=== PATIENT | female | born 1945 | race Caucasian/White ===

== ENCOUNTER 2019-12-21 16:49 | Outpatient (CLI) | payer MEDICARE, OTHER, SELFPAY ==
--- NOTE | ~2019-12-21 | MM_ITS ---
EXAMINATION: MM screening geri BI w brenda HISTORY: Screening TECHNIQUE: Craniocaudal and mediolateral oblique 3-D tomosynthesis images were obtained and synthetic 2-D images were generated. CAD analysis was submitted and interpreted. COMPARISON: Comparison to multiple prior studies sequentially, with oldest reviewed study dated 05/01. BREAST PARENCHYMAL COMPOSITION: There are scattered areas of fibroglandular density. FINDINGS: There is no evidence of suspicious mass, calcification, or architectural distortion to sugg est malignancy in either breast. There has been no suspicious interval change. IMPRESSION: 1. No mammographic evidence of malignancy. 2. Recommend routine screening mammography in one year. BI-RADS Category 1: Negative Reviewed, dictated and finalized at location A.
== END 2019-12-21 16:50 | disposition home or self-care (01) ==
LOC: ANHIMG 16:58
PROVIDERS: PCP Family Medicine; Visit Provider Physician Assistant
DX: Z12.31 Encounter for screening mammogram for malignant neoplasm of breast (principal); Z78.0 Asymptomatic menopausal state
CPT/HCPCS: 77063; 77067

== ENCOUNTER 2020-01-30 09:02 | Outpatient (CLI) | payer MEDICARE, OTHER, SELFPAY ==
--- NOTE | ~2020-01-30 | DEXA_ITS ---
Bone Density Report Name: Kristine Mcnair Age: 74 Sex: Female Ethnicity: White Date of : 1945 Indication: osteopenia; parental hip fracture; height loss; prior fracture; Referring Provider: Sarah Corona Study: Bone densitometry was performed. Exam Date: January 30, 2020 Accession number: [id number] Bone Density: Region BMD T-score Z-score Classification AP Spine (L1-L4) 0.846 -1.8 0.4 Osteopenia Femoral Neck (Left) 0.745 -0.9 1.0 Normal Total Hip (Left) 0.850 -0.8 0.9 Normal Total Hip Bilateral Avg 0.850 -0.8 0.9 Normal Femoral Neck (Right) 0.759 -0.8 1.1 Normal Total Hip (Right) 0.849 -0.8 0.9 Normal World Health Organization criteria for BMD impression classify patients as: Normal (T-score at or above -1.0), Osteopenia (T-score between -1.0 and -2.5), or Osteoporosis (T-score at or below -2.5). 10-year Fracture Risk(1): Major Osteoporotic Fracture 21% Hip Fracture 4.9% Reported Risk Factors: [place] (), Neck BMD=0.745, BMI=25.8, previous fracture, parental fracture (1) FRAX(R) Version 3.08. Fracture probability calculated for an untreated patient. Fracture probability may be lower if the patient has received treatment. Previous Exams: Region Exam Age BMD T-score BMD Change BMD Change Date g/cm2 vs Baseline vs Previous AP Spine(L1-L4) 01/30/2020 74 0.846 -1.8 -0.147(-14.8%) -0.027(-3.1%)* 09/10/2017 72 0.873 -1.6 -0.120(-12.1%) -0.001(-0.1%) 05/01/2015 69 0.874 -1.6 -0.119(-12.0%) -0.119(-12.0%) 09/10/2009 64 0.993 -0.5 Total Hip(Left) 01/30/2020 74 0.850 -0.8 -0.087(-9.3%)# -0.018(-2.1%) 09/10/2017 72 0.868 -0.6 -0.069(-7.3%)# -0.002(-0.3%) 05/01/2015 69 0.871 -0.6 -0.066(-7.1%)# -0.066(-7.1%)# 09/10/2009 64 0.937 0.0 Total Hip(Right) 01/30/2020 74 0.849 -0.8 -0.132(-13.4%) -0.023(-2.7%) 09/10/2017 72 0.873 -0.6 -0.108(-11.0%) -0.016(-1.8%) 05/01/2015 69 0.889 -0.4 -0.092(-9.4%)# -0.092(-9.4%)# 09/10/2009 64 0.981 0.3 *Denotes significance at 95% confidence level, LSC for AP Spine = 0.022 g/cm2, LSC for Total Hip = 0.027 g/cm2 Clinical Information Provided by Patient: Has had a low trauma fracture Parent has had a hip fracture Has used the following medications: Calcium Patient maximum height was 67 Menopause Age: 52 No regular weight bearing exercise Drinks caffeinated beverages Onset of menses at age 13 Number of children 2
== END 2020-01-30 09:03 | disposition home or self-care (01) ==
PROVIDERS: PCP Family Medicine; Visit Provider Physician Assistant
DX: M85.88 Other specified disorders of bone density and structure, other site (principal); Z78.0 Asymptomatic menopausal state
CPT/HCPCS: 77080

== ENCOUNTER 2021-02-11 09:13 | Outpatient (CLI) | payer MEDICARE, OTHER, SELFPAY ==
--- NOTE | ~2021-02-11 | MM_ITS ---
EXAMINATION: MM screening geri BI w brenda HISTORY: Screening mammogram TECHNIQUE: Craniocaudal and mediolateral oblique 3-D tomosynthesis images were obtained and synthetic 2-D images were generated. CAD analysis was submitted and interpreted. COMPARISON: 12/21/2019, 09/22/2018, 09/10/2017 bilateral screening mammogram examinations BREAST PARENCHYMAL COMPOSITION: There are scattered areas of fibroglandular density. FINDINGS: Biopsy marker on the left; history of prior benign left breast biopsy. Scattered bilateral benign calcifications. There is no evidence of suspicious mass, calcification, or architectural disto rtion to suggest malignancy in either breast. There has been no suspicious interval change. IMPRESSION: 1. No mammographic evidence of malignancy. 2. Recommend routine screening mammography in one year. BI-RADS Category 2: Benign finding(s). Reviewed, dictated and finalized at location A. PROPELLED MINING MACHINE OPERATOR
== END 2021-02-11 09:14 | disposition home or self-care (01) ==
PROVIDERS: PCP Family Medicine; Visit Provider Physician Assistant Medical
DX: Z12.31 Encounter for screening mammogram for malignant neoplasm of breast (principal)
CPT/HCPCS: 77063; 77067

== ENCOUNTER 2022-04-29 08:44 | Outpatient (CLI) | payer MEDICARE, OTHER, SELFPAY ==
--- NOTE | ~2022-04-29 | MM_ITS ---
EXAMINATION: MM screening geri BI w brenda HISTORY: Screening mammogram TECHNIQUE: Craniocaudal and mediolateral oblique 3-D tomosynthesis images were obtained and synthetic 2-D images were generated. CAD analysis was submitted and interpreted. COMPARISON: 02/11/2021, 12/21/2019, 09/22/2018 bilateral screening mammogram examinations BREAST PARENCHYMAL COMPOSITION: There are scattered areas of fibroglandular density. FINDINGS: Biopsy marker again noted on the left; history of prior benign left breast biopsy. Scattere d bilateral benign calcifications. There is no evidence of suspicious mass, calcification, or archite ctural distortion to suggest malignancy in either breast. There has been no suspicious interval christine e. IMPRESSION: 1. No mammographic evidence of malignancy. 2. Recommend routine screening mammography in one year. BI-RADS Category 2: Benign finding(s). Reviewed, dictated and finalized at location C. OR ENGINEER
--- NOTE | ~2022-04-29 | DEXA_ITS ---
Bone Density Report Name: BK JUNE Age: 76 Sex: Female Ethnicity: White Date of : 1945 Indication: postmenopausal; screening for osteoporosis; height loss; Referring Provider: KWABENA SAMAYOA Study: Bone densitometry was performed. Exam Date: April 29, 2022 Accession number: [id number] Bone Density: Region BMD T-score Z-score Classification AP Spine(L1-L4) 0.878 -1.5 0.8 Osteopenia Femoral Neck (Left) 0.692 -1.4 0.7 Osteopenia Total Hip (Left) 0.810 -1.1 0.7 Osteopenia Femoral Neck (Right) 0.757 -0.8 1.2 Normal Total Hip (Right) 0.869 -0.6 1.2 Normal Total Hip Mean 0.840 -0.9 1.0 Normal World Health Organization criteria for BMD impression classify patients as: Normal (T-score at or above -1.0), Osteopenia (T-score between -1.0 and -2.5), or Osteoporosis (T-score at or below -2.5). 10-year Fracture Risk(1): Major Osteoporotic Fracture 11% Hip Fracture 2.1% Reported Risk Factors: [place] (), Neck BMD=0.692, BMI=25.0 (1) FRAX(R) Version 3.08. Fracture probability calculated for an untreated patient. Fracture probability may be lower if the patient has received treatment. Previous Exams: Region Exam Age BMD T-score BMD Change BMD Change Date g/cm2 vs Baseline vs Previous Total Hip(Left) 04/29/2022 76 0.810 -1.1 -0.060 (-6.9%) -0.040 (-4.7%) 01/30/2020 74 0.850 -0.8 -0.021 (-2.4%) -0.018 (-2.1%) 09/10/2017 72 0.868 -0.6 -0.002 (-0.3%) -0.002 (-0.3%) 05/01/2015 69 0.871 -0.6 Total Hip(Right) 04/29/2022 76 0.869 -0.6 -0.020 (-2.3%) 0.020 (2.3%) 01/30/2020 74 0.849 -0.8 -0.040 (-4.5%) -0.023 (-2.7%) 09/10/2017 72 0.873 -0.6 -0.016 (-1.8%) -0.016 (-1.8%) 05/01/2015 69 0.889 -0.4 *Denotes significance at 95% confidence level, LSC for Total Hip = 0.027 g/cm2 Clinical Information Provided by Patient: Has used the following medications: Vitamin D, Calcium Patient maximum height was 67 Menopause Age: 52 Drinks caffeinated beverages Onset of menses at age 13 Number of children 2 Impression: The patient has low bone mass, based on the Total Spine T-score. The patient has an estimated ten-year risk of hip fracture of 2.1% and an estimated ten-year risk of major fracture of 11%, based on the WHO FRAX algorithm. The BMD for the Total Hip(Left) decreased, changing by -4.7% since the last DXA exam. Discussion: BONE DENSITY IS LOW AT ONE OR MORE SKELETAL SITES. This patient's indianola
== END 2022-04-29 08:45 | disposition home or self-care (01) ==
PROVIDERS: PCP Family Medicine; Visit Provider Physician Assistant
DX: Z12.31 Encounter for screening mammogram for malignant neoplasm of breast (principal); Z78.0 Asymptomatic menopausal state; M85.88 Other specified disorders of bone density and structure, other site; M85.852 Other specified disorders of bone density and structure, left thigh
CPT/HCPCS: 77063; 77067; 77080

== ENCOUNTER 2022-12-25 09:53 | Outpatient (CLI) | payer MEDICARE, OTHER, SELFPAY | END 2022-12-25 09:54 | disposition home or self-care (01) | LOC: ANHAUDIO 09:54 | PROVIDERS: PCP Family Medicine; Visit Provider Otolaryngology | DX: H93.12 Tinnitus, left ear (principal); H90.3 Sensorineural hearing loss, bilateral | CPT/HCPCS: 92557; 92567 ==

== ENCOUNTER → 2023-01-07 11:13 | Outpatient (CLI) | payer MEDICARE, OTHER, SELFPAY ==
--- NOTE | ~2023-01-07 | MR_ITS ---
EXAMINATION: MR IAC wo/w con DATE: 01/07/2023 12:25 INDICATION: Sensorineural hearing loss, bilateral. TECHNIQUE: Magnetic resonance imaging (MRI) of the brain, brainstem, and internal auditory canals was performed without and with 13 mL MultiHance intravenous contrast. 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 There are scattered areas of nonspecific in creased T2-weighted signal intensity in the cerebral white matter. There is no intracranial hemorrhag e, acute infarction, or abnormal intracranial mass lesion. The ventricles are normal in size. The int ernal auditory canals and inner ears and tympanic cavities are normal. The mastoid air cells are norm al. There are likely changes of ocular lens replacement surgeries. The paranasal sinuses are clear. IMPRESSION: 1. 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 2. Mild nonspecific cerebral white matter disease, which likely represents chronic small vessel ische maryuri disease. Reviewed, dictated and finalized at location E. IMPRESSION: 1. 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 2. Mild nonspecific cerebral white matter disease, which likely represents pediatric psychologist jack small vessel ischemic disease.
== END ==
PROVIDERS: PCP Family Medicine; Visit Provider Otolaryngology
DX: H90.3 Sensorineural hearing loss, bilateral (principal); I63.89 Other cerebral infarction; R90.82 White matter disease, unspecified
CPT/HCPCS: 70553; A9577

== ENCOUNTER 2023-06-23 10:13 | Outpatient (CLI) | payer MEDICARE, OTHER, SELFPAY ==
--- NOTE | ~2023-06-23 | MM_ITS ---
EXAMINATION: MM screening geri BI w brenda HISTORY: Screening mammogram TECHNIQUE: Craniocaudal and mediolateral oblique 3-D tomosynthesis images were obtained and synthetic 2-D images were generated. CAD analysis was submitted and interpreted. COMPARISON: April 29, 2022, February 11, 2021 bilateral screening mammogram examinations BREAST PARENCHYMAL COMPOSITION: There are scattered areas of fibroglandular density. FINDINGS: Biopsy markers on the left; history of prior benign left breast biopsy. Scattered bilateral benign calcifications including secretory calcifications and calcified microhemat omas are again noted. There is no evidence of suspicious mass, calcification, or architectural distortion to suggest malign johan in either breast. There has been no suspicious interval change. IMPRESSION: 1. No mammographic evidence of malignancy. 2. Recommend routine screening mammography in one year. BI-RADS Category 2: Benign finding(s). Reviewed, dictated and finalized at location A.
== END 2023-06-23 10:14 | disposition home or self-care (01) ==
PROVIDERS: PCP Family Medicine; Visit Provider Physician Assistant
DX: Z12.31 Encounter for screening mammogram for malignant neoplasm of breast (principal)
CPT/HCPCS: 77063; 77067

== ENCOUNTER 2024-07-18 13:47 | Outpatient (CLI) | payer MEDICARE, OTHER, SELFPAY ==
--- NOTE | ~2024-07-18 | MM_ITS ---
EXAMINATION: MM screening [facility] BI w brenda HISTORY: Screening TECHNIQUE: Craniocaudal and mediolateral oblique 3-D tomosynthesis images were obtained and synthetic 2-D images were generated. CAD analysis was submitted and interpreted. COMPARISON: Comparison to multiple prior studies sequentially, with oldest reviewed study dated 09/10. BREAST PARENCHYMAL COMPOSITION: Not dense: There are scattered areas of fibroglandular density. FINDINGS: There is no evidence of suspicious mass, calcification, or architectural distortion to sugg est malignancy in either breast. There has been no suspicious interval change. IMPRESSION: 1. No mammographic evidence of malignancy. 2. Recommend routine screening mammography in one year. BI-RADS Category 1: Negative Reviewed, dictated and finalized at location A.
--- NOTE | ~2024-07-18 | DEXA_ITS ---
Bone Density Report Name: BK JUNE Age: 79 Sex: Female Ethnicity: White Date of : 1945 Indication: osteopenia; parental hip fracture; height loss; Referring Provider: HUBERT FINCH Study: Bone densitometry was performed. Exam Date: July 18, 2024 Accession number: [id number] Bone Density: Region BMD T-score Z-score Classification AP Spine(L1-L4) 0.885 -1.5 1.0 Osteopenia Femoral Neck (Left) 0.700 -1.3 0.8 Osteopenia Total Hip (Left) 0.837 -0.9 1.0 Normal Femoral Neck (Right) 0.725 -1.1 1.1 Osteopenia Total Hip (Right) 0.876 -0.5 1.4 Normal Total Hip Mean 0.857 -0.7 1.2 Normal World Health Organization criteria for BMD impression classify patients as: Normal (T-score at or above -1.0), Osteopenia (T-score between -1.0 and -2.5), or Osteoporosis (T-score at or below -2.5). 10-year Fracture Risk(1): Major Osteoporotic Fracture 19% Hip Fracture 9.7% Reported Risk Factors: [place] (), Neck BMD=0.700, BMI=25.4, parental fracture (1) FRAX(R) Version 3.08. Fracture probability calculated for an untreated patient. Fracture probability may be lower if the patient has received treatment. Previous Exams: Region Exam Age BMD T-score BMD Change BMD Change Date g/cm2 vs Baseline vs Previous AP Spine (L1-L4) 07/18/2024 79 0.885 -1.5 0.011 (1.3%) 0.008 (0.9%) 04/29/2022 76 0.878 -1.5 0.003 (0.4%) 0.032 (3.7%)* 01/30/2020 74 0.846 -1.8 -0.028 (-3.2%) -0.027 (-3.1%) 09/10/2017 72 0.873 -1.6 -0.001 (-0.1%) -0.001 (-0.1%) 05/01/2015 69 0.874 -1.6 Total Hip(Left) 07/18/2024 79 0.837 -0.9 -0.033 (-3.8%) 0.027 (3.3%) 04/29/2022 76 0.810 -1.1 -0.060 (-6.9%) -0.040 (-4.7%) 01/30/2020 74 0.850 -0.8 -0.021 (-2.4%) -0.018 (-2.1%) 09/10/2017 72 0.868 -0.6 -0.002 (-0.3%) -0.002 (-0.3%) 05/01/2015 69 0.871 -0.6 Total Hip(Right) 07/18/2024 79 0.876 -0.5 -0.013 (-1.4%) 0.007 (0.8%) 04/29/2022 76 0.869 -0.6 -0.020 (-2.3%) 0.020 (2.3%) 01/30/2020 74 0.849 -0.8 -0.040 (-4.5%) -0.023 (-2.7%) 09/10/2017 72 0.873 -0.6 -0.016 (-1.8%) -0.016 (-1.8%) 05/01/2015 69 0.889 -0.4 *Denotes significance at 95% confidence level, LSC for AP Spine = 0.022 g/cm2, LSC for Total Hip = 0.027 g/cm2 Clinical Information Provided by Patient: Parent has had a hip fracture Has used the following medications: Vitamin D, Calcium Patient maximum height was 67 Menopause Age: 52 Drinks caffeinated beverages Onset of menses at age 13 Number of children 2 Impression: The patient has low bone mass, based on the Total Spine T-score. The patient has an estimated ten-year risk of hip fracture of 9.7% and an estimated ten-year risk of major fracture of 19%, based on the WHO FRAX algorithm. The patient has risk factors, including: parental hip fracture. No significant bone loss was observed. Discussion: BONE DENSITY IS LOW AT ONE OR MORE SKELETAL SITES. THE PATIENT'S BMD AND CLINICAL RISK FACTORS CONTRIBUTE TO THIS PATIENT'S INCREASED RISK OF FRACTURE. This patient's lowest T-score is low at one or more skeletal sites. It meets the World Health Organization's (WHO) criteria for ?low bone mass? (T-score between -1.0 and -2.5). The patient's 10-year risk of hip fracture as calculated by FRAX exceeds the threshold where pharmacological therapy is recommended by the National Osteoporosis Foundation (NOF). However, all treatment decisions require clinical judgment and consideration of individual patient factors, including patient preferences, comorbidities, previous drug use, risk factors not captured in the FRAX model (e.g., frailty, falls, vitamin D deficiency, increased bone turnover, interval significant decline in bone density) and possible under or overestimation of fracture risk by FRAX. The patient should follow a healthful lifestyle (good nutrition with adequate calcium and vitamin D, and appropriate weight-bearing exercise). Follow-Up: Consider a repeat BMD and Vertebral Fracture Assessment (VFA) exam in 2 years or sooner if medically necessary, to reassess this patient's status. Reported by: QI on 07/18/2024 2:31:00 PM. Reviewed, dictated and finalized at location AAgustina GUIDO
--- OUTSIDE RECORDS SUMMARY | 2024-07-18 13:53 | XMS_ITS | Clinical Summary ---
Author Organization [facility] Address [address] [place] [id number] Care Team Providers Care Linesperson Name Role Phone Unavailable Primary Care Provider Unavailabl e Social History Tobacco Use Types Packs/Day Years Used Date Smoking Tobacco: Never Assessed Comments Unknown Sex and Gender Information Value Date Recorded Sex Assigned at Not on file Legal Sex Female 7:37 PM CDT Gender Identity Not on file Sexual Orientation Not on file Plan of Treatment Health Maintenance Due Date Last Done Comments Hepatitis C 07/09/1965 DTaP, Tdap and Td Vaccines ( 1 - Tdap) 07/09/1966 Pneumococcal Vaccine: 50+ Ye ars (1 of 1 - PCV) 07/09/1997 Zoster Vaccines (1 of 2) 07/09/1997 Dexa Scan (General) 07/09/2012 RSV Immunization or 60+ Years (1 - 1-dose 75+ series) 07/09/2022 COVID-19 Vaccine ( - 2023-2 5 season) 2023 Meningococcal B Vaccine Aged Out No l onger eligible based on patient's age to complete this topic Meningococcal Vaccine Aged Out No candice saúl eligible based on patient's age to complete this topic RSV Immunizations Under 20 Months Aged Out No longer eligible based on patient's age to complete this topic
--- OUTSIDE RECORDS SUMMARY | 2024-07-18 13:53 | XMS_ITS | Continuity of Care Document ---
Author Organization [facility] Address [address] [place] [address] [place] [address] Phone Care Team Providers Care Dukey Rider Name Role Phone [facility] Unavailable Unavail able Terri Daley Unavailable Unavailable Procedures Procedure Date Vision Svcs Frames Purchases Progressive Lens, Polycarb Anti-reflective Coating [employer] - Medical Progressive Lens, Plastic Vision Svcs Frames Purchases Tint Plastic, Non-Bozena Anti-reflective Coating [employer] - Medical Progressive Lens, Plastic Frames Deluxe Anti-reflective Coating [facility] Medical Advance Directives Directive Yes / No Effective Date File Name No Information Encounters Encounter Description Practice Location Reason(s) For Visit Diagnoses Date Provider Providers Copied on Encounter [facility], [address], [place], [place], [id number], [place] tel:[phone] [facility] No Information 0 [facility] [address] [facility], [address], [place], [place], [id number] , [place]. tel:[phone] Referring Provider: Shin Joel, [address] [place], [address]. tel:[phone] juarez Provider: Terri Daley, [address] [place], [address]. tel:[phone] [facility], [address], [place], [place], [id number], [place] tel:[phone] [facility] No Information 7 [facility] [address] [facility], [address], [place], [place], [address] , [place]. tel:[phone] Consulting Provider: Monet Nelson, [address] [place], [address]. tel:[phone] [facility] [employer], [address], [place], [place], [id number], [place] tel:[phone] [facility] No Information 7 [facility] [address], [address], [place], [place], [address] , [place]. tel:[phone] Referring Provider: Shin Joel, [address] [place], [address]. tel:[phone] g Provider: Monet Nelson, [address] [place], [address]. tel:[phone] Family History Family Member Type Diagnosis Age At Onset No Information Payers Payer name Insurance type Covered green party ID Authoriza tion(s) No Information Social History Type Description Quantity Date Captured Comments Sex Female Smoking Status No Information Chief Complaint And Reason For Visit No Information Reason For Referral Reason For Referral No Information History Of Present Illness Encounter Date Complaint History Of Prese nt Illness No Information Functional Status Date Functional Assessmen t No Information Instructions Date Instruction Additional Infor mation No Information Assessments Type Assessment Date No Information Patient Care Teams Name Effective Dates (start - stop) Status Members No Information
== END 2024-07-18 13:48 | disposition home or self-care (01) ==
PROVIDERS: PCP Family Medicine; Visit Provider Nurse Practitioner Family
DX: Z12.31 Encounter for screening mammogram for malignant neoplasm of breast (principal); M81.0 Age-related osteoporosis without current pathological fracture; M85.88 Other specified disorders of bone density and structure, other site; M85.852 Other specified disorders of bone density and structure, left thigh; M85.851 Other specified disorders of bone density and structure, right thigh
CPT/HCPCS: 77063; 77067; 77080

== ENCOUNTER 2025-01-15 10:55 | Emergency (ER) | payer MEDICARE, OTHER, SELFPAY ==
[2025-01-15 11:04] VITALS: BP 131/68; PULSE 75; RESP 16; TEMP 37.1; O2SAT 98
--- NOTE | 2025-01-15 11:21 | ED_ITS ---
HPI - URI/Sore Throat General Chief Complaint: Upper Respiratory Infection Stated Complaint: Cough Time Seen by Provider: 01/15/25 11:14 Source: patient and RN notes reviewed Mode of arrival: ambulatory Limitations: no limitations History of Present Illness HPI Narrative: 79-year-old female patient presents today with a 4 day history of nasal congestion, postnasal drip dry cough. Denies fever, sore throat, shortness of breath, known sick contacts. No history of asthma or COPD. She has been taking Delsym with mild relief. Related Data Home Medications ?Medication ?Instructions ?Recorded ?Confirmed ?Last Taken ?Type aspirin 81 mg tablet,delayed 81 mg PO DAILY 02/22/19 1 04/16/23 Unknown History release calcium 600 mg-D3 800 unit-mag11 1 tablet PO BID 02/2202/14/24 Unknown History 50 zh-dvlp-wtqabl-patrick-s.borat tablet (Caltrate 600-D Plus Minerals) multivitamin 1 tablet PO DAILY 02/22/19 1 04/16/23 Unknown History vit C 250 mg-vit E 90 mg-zinc 40 1 tablet PO BID 02/2202/14/24 Unknown History mg-copper 1 km-jotxim-evxlon capsule (PreserVision AREDS-2) latanoprost 0.005 % eye drops drp EACH EYE 02/14/24 Unknown History Allergies Allergy/AdvReac Type Severity Reaction Status Date / Time amlodipine Allergy Intermediate Swelling Verified 01/15/25 11:19 [facility] Past Medical History Medical History Cerebellar ataxia Cataract Hepatitis C antibody test negative (02/14/19) Surgical History Surgical History S/P removal of thyroid nodule (~2012) Left Family History Family History Father Family history of arthritis Mother Family history of arthritis Social History Social History Smoking status: Never smoker Alcohol intake: current Drinks per week: 3 Lack of Transportation: No Lack of Food: Never True Current Housing: I Have Housing Concerned About Future Housing: No Difficulty Paying Gas/Electric Bills: No Difficulty Paying for Meds: No Currently Unemployed: No Education: Bachelor's Degree Difficulty w/ Childcare or Family Care: No Comments At time of signature, I have reviewed and agree with nursing past medical, surgical, social and family history unless otherwise noted. Please see nursing chart for further information. There is no relevant family history pertinent to the presenting complaint Exam Narrative: GENERAL: Well-appearing, well-nourished, and in no acute distress. HEAD: Normocephalic, atraumatic. EYES: EOMI. No redness or drainage. Conjunctivae normal. ENT: Mucous membranes pink and moist. Nares mild nasal congestion rhinorrhea. Mildly swollen nasal turbinates bilaterally. TMs normal bilaterally. Throat normal. Uvula midline. NECK: Normal AROM. Supple. No lymphadenopathy. CHEST: No respiratory distress. Clear to auscultation. HEART: Regular rate and rhythm. No murmur appreciated. EXTREMITIES: Normal range of motion. No edema. SKIN: Warm, dry, no rash. Capillary refill normal. Normal skin turgor. NEURO: No focal deficits. Alert and oriented x3. Gait steady. PSYCH: Normal affect. No signs of depression or anxiety. Course Course Level of Care: Express Care Visit Vital Signs Vital signs: Vital Signs Temperature 98.7 F 01/15/25 11:04 Pulse Rate 75 01/15/25 11:04 Respiratory Rate 16 01/15/25 11:04 Blood Pressure 131/68 01/15/25 11:04 Pulse Oximetry 98 01/15/25 11:04 Oxygen Delivery Room Air 01/15/25 11:04 Temperature 98.7 F 01/15/25 11:04 Pulse Rate 75 01/15/25 11:04 Respiratory Rate 16 01/15/25 11:04 Blood Pressure 131/68 01/15/25 11:04 Pulse Oximetry 98 01/15/25 11:04 Oxygen Delivery Room Air 01/15/25 11:04 Reviewed MDM - URI/Sore Throat MDM Narrative Medical decision making narrative: 79-year-old female patient presents today with a 4 day history of nasal congestion, postnasal drip dry cough. Denies fever, sore throat, shortness of breath, known sick contacts. No history of asthma or COPD. She has been taking Delsym with mild relief. Exam shows some mild nasal congestion and rhinorrhea. COVID and influenza negative. Symptoms likely viral in etiology. Discussed nyxy-tbg-awwaogt medication use and duration of illness. Prescription for Tessalon Perle sent to pharmacy. Anticipatory guidance given. Differential Diagnosis Differential diagnosis: Likely upper respiratory infection, viral infection, influenza and other (COVID-19) Lab Data Attestation: I reviewed the patient's lab results. Labs: Lab Results 01/15/25 Range/Units 11:34 POC Influenza A Ag Negative (Negative) POC Influenza B Ag Negative (Negative) POC SARS CoV-2 Ag Negative (Negative) Critical Care Time Critical Care Time Critical Care Time: No Discharge Plan Discharge Clinical Impression: Upper respiratory infection Qualifiers: URI type: unspecified URI Qualified Code(s): J06.9 - Acute upper respiratory infection, unspecified Patient Disposition: Home Condition: Stable Instructions: Upper Respiratory Infection (DC) Additional Instructions: Your COVID and influenza swabs symptoms are likely due to a viral illness, which is not treated with antibiotics. Virus symptoms can last for up to 7-10days. Take Tylenol for pain or fever. Take the Tessalon Perles as prescribed. Rest and stay hydrated. Follow up with your PCP in 7 days if symptoms are not improving. Go to the ER immediately if you develop shortness of breath, difficulty swallowing, or any other concerning symptoms. Patient Language: Kazakh Prescriptions: New benzonatate 200 mg capsule 200 mg PO TID PRN (Reason: cough) Qty: 20 0RF No Action aspirin 81 mg tablet,delayed release (DR/EC) 81 mg PO DAILY Caltrate 600-D Plus Minerals 600 mg calcium- 800 unit-50 mg tablet 1 tablet PO BID multivitamin Tablet 1 tablet PO DAILY PreserVision AREDS-2 [id number] wt-xrat-fq-mg capsule 1 tablet PO BID latanoprost 0.005 % drops EACH EYE triamcinolone acetonide 0.1 % cream 1 applic topical BID Qty: 80 2RF lovastatin 10 mg tablet See Rx Instructions .ROUTE .COMPLEX Qty: 90 1RF Dose Instruction: TAKE 1 TABLET BY MOUTH EVERY DAY Rx Instructions: TAKE 1 TABLET BY MOUTH EVERY DAY metoprolol succinate 50 mg tablet extended release 24 hr See Rx Instructions .ROUTE .COMPLEX Qty: 180 1RF Dose Instruction: TAKE 1 TABLET BY MOUTH TWICE A DAY Rx Instructions: TAKE 1 TABLET BY MOUTH TWICE A DAY Follow-up/Referrals: Gabino Dumont MD [Primary Care Provider, [facility]] Time of Disposition: 11:47
[2025-01-15 11:36] LABS: EDCOVIDSCREEN Negative (Negative); EDINFLUASCREEN Negative (Negative); EDINFLUBSCREEN Negative (Negative)
== END 2025-01-15 11:50 | disposition home or self-care (01) ==
PROVIDERS: Emergency Provider Nurse Practitioner; PCP Family Medicine
DX: J06.9 Acute upper respiratory infection, unspecified (principal); Z20.822 Contact with and (suspected) exposure to COVID-19; G11.9 Hereditary ataxia, unspecified
CPT/HCPCS: 87426; 87804; 99213; G0463